=== PATIENT | male | born 1995 | race Hispanic/Latino ===

== ENCOUNTER 2019-10-30 19:54 | Emergency (ER) | payer OTHER ==
[~2019-10-30] VITALS: Ht 190.5 cm; Wt 136.4 kg
[2019-10-30] MEDS ORDERED: KETOROLAC 60MG 2ML VIAL IM ONE (20:30)
[2019-10-30] MEDS ORDERED: CYCLOBENZAPRINE 10MG TABLET PO ONE (20:30)
[2019-10-30] MEDS ORDERED: traMADol 50 MG TAB PO ONE (21:00)
[2019-10-30] MEDS ORDERED: diazePAM 10 MG TAB PO ONE (21:00)
[2019-10-30] MEDS ORDERED: predniSONE 20 MG TAB PO ONE (21:00)
[2019-10-30] MEDS ORDERED: TRAM50TA2 PO (21:10)
[2019-10-30] MEDS ORDERED: PRED20TA PO (21:10)
[2019-10-30 21:34] VITALS: BP 146/93
== END 2019-10-30 21:46 | disposition home or self-care (01) ==
LOC: M ED 19:54
DX: M51.26 Other intervertebral disc displacement, lumbar region (principal)
CPT/HCPCS: 96372; 99283; J1885

== ENCOUNTER → 2020-04-08 | Outpatient (CLI) | payer SELFPAY ==
[~2020-04-08] MED LIST: PRED20TA PO; TRAM50TA2 PO
== END ==
LOC: M LABSMTC 13:46
PROVIDERS: ATTEND Pediatrics
DX: Z20.828 Contact with and (suspected) exposure to other viral communicable diseases (principal)

== ENCOUNTER 2020-09-18 18:37 | Emergency (ER) | payer OTHER ==
[~2020-09-18] VITALS: Ht 190.5 cm; Wt 145.4 kg
[2020-09-18 20:53] VITALS: BP 130/90
== END 2020-09-18 20:54 | disposition home or self-care (01) ==
LOC: M ED 18:37
DX: G56.03 Carpal tunnel syndrome, bilateral upper limbs (principal)